=== PATIENT | male | born 1970 | race Caucasian/White ===

== ENCOUNTER 2025-02-17 09:11 | Observation (INO) ==
[2025-02-17] MEDS: ONDANSETRON INJ 2 MG/ML 2 ML VIAL IV STA (09:52)
[2025-02-17] MEDS: SODIUM CHLORIDE 0.9% 1,000 ML IV STA (09:52)
[2025-02-17 10:09] LABS: Hematocrit (blood only) 52.0 % (42.0-52.0); Hemoglobin 17.7 g/dl (14.0-18.0); Immature Granulocytes # (auto) 0.05 K/uL (0.01-0.20); Immature Granulocytes % (auto) 0.5 %; Mean Corpuscular Hemoglobin 29.9 pg (25.0-34.0); Mean Corpuscular Volume 88.0 fL (80.0-100.0); Platelet Count 307 K/uL (130-400); RDW Standard Deviation 40.5 fL (36.4-46.3); Red Blood Count 5.91 M/uL (4.70-6.10); White Blood Count 9.96 K/ul (4.8-10.8)
[2025-02-17 10:20] LABS: Appearance Urine Clear (Clear); Bacteria Urine Automated None Seen (None Seen); Cast Urine Automated 0-2 /lpf (0-2); Epithelial Cell Urine Auto 0-2 /hpf (0-2); Glucose Urine UA Negative (Negative); RBC Urine Automated 0-2 /hpf (0-2); WBC Urine Automated 0-5 /hpf (0-5)
[2025-02-17] MEDS: PANTOprazole 40 MG/10 ML SYR IV ONE (10:25)
[2025-02-17 10:27] LABS: Alanine Aminotransferase 15.0 U/L (7-52); Albumin Globulin Ratio 1.4 (0.9-2); Alkaline Phosphatase 91.0 U/L (34-104); Anion Gap 11.0 (3-11); Bilirubin,Total 0.7 mg/dl (0.2-1.0); Blood Urea Nitrogen 14.0 mg/dl (6-23); Calcium 9.7 mg/dl (8.6-10.3); Carbon Dioxide 24.0 mmol/L (21-32); Chloride 98.0 mmol/L (98-107); Creatinine Clr Calc Pharmacy 83.8 ml/min; Globulin 3.4 gm/dl (2.5-4.0); Glucose 91.0 mg/dl (70-99(Fasting)); Lipase 19.0 U/L (11-82); Potassium 3.4 mmol/L (3.5-5.1); Sodium 133.0 mmol/L (136-145); Total Protein 8.1 gm/dl (6.0-8.3)
--- NOTE | 2025-02-17 11:16 | Emergency Department Note ---
Impression & Plan Intractable vomiting ED Provider Note CHIEF COMPLAINT: Intractable vomiting HISTORY OF PRESENTING ILLNESS: Patient is a 54-year-old male who presents to the emergency department today for complaints of intractable vomiting. He was seen and evaluated here in the emergency department yesterday and was discharged home. However throughout the night he had vomited multiple times as well as when he woke up this morning. He was sent home with a prescription for Zofran which has been ineffective. The patient states he is unable to eat or drink anything without vomiting immediately after. He does deny abdominal pain but says his muscles are tight from the frequent vomiting. He denies diarrhea. He does deny NSAID or frequent alcohol use. He does report drinking coffee on an empty stomach every morning and throughout the afternoon. He does have a history of stomach ulcers from several years ago. Typically when he has symptoms he will take some Pepcid and they will resolve however he has been unable to swallow the Pepcid and keep it down. He does deny any head trauma, falls, loss of consciousness, dizziness, lightheadedness, syncope. He denies chest pain, sob, breathing difficulties, abdominal pain, headache, fevers/chills, blood in stool or urine, any recent illness, or any recent travel. REVIEW OF SYSTEMS: See HPI for pertinent positives and pertinent negatives. ALLERGIES: See below MEDICATIONS: See below PAST MEDICAL HISTORY: See below PHYSICAL EXAM: VITAL SIGNS - Vital signs and nursing notes were reviewed. GENERAL -54-year-old male appearing his stated age who is in no acute distress. Communicates well with provider and answers questions appropriately. HEAD - NC/AT. EYES - PERRL with EOMI bilaterally. Sclera anicteric. Palpebral conjunctiva pink and moist with no injection noted. NOSE - Midline and without cyanosis. No epistaxis or purulent drainage noted. Septum midline without deviation or septal hematoma noted. MOUTH/OROPHARYNX - Without perioral cyanosis. Buccal mucosa pink and moist and without leukoplakia. Tongue midline with equal elevation of palate bilaterally. No tonsillar hypertrophy, erythema, or exudates noted. NECK - Neck with FROM. Supple to palpation. No nuchal rigidity. LUNGS - Chest wall symmetric without accessory muscle use, intercostals retractions, or central cyanosis. Normal vesicular breath sounds CTA B/L. No wheezes, rales, or rhonchi appreciated. CARDIAC - RRR with S1/S2. No murmur, rubs, or gallops appreciated. ABDOMEN - Abdominal contour is without pulsations or visible masses. Negative Roxie's or Whitaker Yarbrough's Signs. BS normoactive all four quadrants. No tenderness to palpation appreciated all 4 quadrants. No guarding. No rebound Tenderness. Negative Vovsing's. Negative Rich's. No palpable masses, hepatosplenomegaly, or ascites noted. PSYCH - A&Ox3 and cooperates fully with examiner. Pt is very pleasant and interacts well with examiner. DIFFERENTIAL DIAGNOSIS: Differential diagnosis includes appendicitis, diverticulitis, bowel obstruction, inflammatory bowel disease, renal colic, PUD, biliary pathology, pancreatitis, mesenteric ischemia, aortic pathology, infection, genitourinary, UTI, perforated viscus, among others. ED COURSE AND MEDICAL DECISION MAKING: HISTORY FROM INDEPENDENT HISTORIAN: History was provided by the patient and his who is at bedside. MONITOR: Continuous surveillance system monitor: Order was placed for continuous surveillance system monitor. Patient was placed on the surveillance system monitor and continuous pulse ox. Patient was noted to be in normal sinus rhythm at an initial rate of 81 bpm per my interpretation. INTERPRETATION OF LABS: I interpreted the labs with full lab results as below in the lab section of this note. Laboratory results pertinent to the emergent complaint are discussed in the MDM section below. The patient was advised to follow up with their PCP and/or specialist(s) for further outpatient monitoring and management of any abnormal results. CHRONIC MEDICAL/SOCIAL CONDITIONS AFFECTING CARE: No social concerns were identified as barriers to patients care. EXTERNAL RECORDS REVIEWED: Patient's previous visit to the emergency department on 02/16/2025. ESCALATION OF CARE CONSIDERED: I considered admission on this patient due to the intractable vomiting and failure with outpatient management. SUMMARY: I examined the patient for complaints of intractable vomiting. A physical exam and history were performed. Nursing notes, EMR, and medication list were personally reviewed. CBC showed no leukocytosis, anemia, thrombocytopenia. CMP showed no emergent findings a sodium of 133, potassium of 3.4. Urinalysis showed a trace amount of leukocytes with negative nitrates and no bacteria. The patient does deny any urinary symptoms. The patient was given 1 L of normal saline here in the emergency department as well as Zofran 4 mg with improvement in nausea and vomiting. On review of the patient's visit yesterday he did have a CT of the abdomen and pelvis completed which showed no acute infectious or inflammatory findings. I did discuss discharge versus admission with the patient and the patient is in agreements for hospital admission for further management. I did consult with Dr. Julio Lancaster who agrees with admission and accepts the patient. DIAGNOSIS: Intractable vomiting TREATMENT PLAN/DISCHARGE INSTRUCTIONS: Admit to hospitalist services. Past Med/Surg History Problem List (Updated 02/17/25 @ 13:25 by Cam Lancaster MD) Tobacco use PUD (peptic ulcer disease) Intractable vomiting (Acute) Vomiting (Acute) Abdominal pain (Acute) Medical History Hypertension Social History Smoking Status: Current every day smoker Tobacco Type: Cigarettes Cigarettes Per Day: 1 pack a day; Second Hand Exposure: No; Do You Dip or Chew Tobacco: No; Tobacco Cessation Education Requested by Patient: No Hx Alcohol Use: Yes Hx Substance Use: No Preferred Language: Croatian Communication Ability: Effective Power Press Tender Required: No Beliefs That Will Affect Care: None Current Living Situation: Spouse Other Information That Helps Us Care for You: No Feels Safe at Home: Yes Safety Concerns: Feels Safe At This Time Assistive Devices: None Allergies Allergies Allergy/AdvReac Type Severity Reaction Status Date / Time No Known Allergies Allergy Unverified 02/17/25 09:17 Home Meds Home Medications Medication Instructions Recorded Confirmed amlodipine 5 mg tablet 10 mg PO BID 02/17/25 02/17/25 buspirone 5 mg tablet 5 mg PO BID 02/17/25 02/17/25 enalapril maleate 10 mg tablet 10 mg PO DAILY 02/17/25 02/17/25 sertraline 50 mg tablet 50 mg PO DAILY 02/17/25 02/17/25 Previous Rx's Medication Instructions Recorded ondansetron HCl 4 mg tablet 4 mg PO Q8H PRN nausea and 02/16/25 vomiting #15 tabs Results & Data (ED) Vital Signs Vital Signs - 24 hr 02/17/25 09:15 02/17/25 10:00 02/17/25 10:00 Temperature 36.4 C L Temperature Source Oral Pulse Rate 76 Pulse Rate from SpO2 Sensor Respiratory Rate 20 Respiratory Effort / Characteristics Non-Labored Spontaneous Respiratory Depth Normal Respiratory Pattern Regular Blood Pressure 196/101 H 196/111 H 196/111 H Blood Pressure Mean 132 154 154 Pulse Oximetry 100 Oxygen Delivery Method Room Air Sepsis Recent Fever Within 48 Hours No Sepsis New/Unexplained Change in Mental Status N/A Sepsis Action Taken by Nursing No Action Required 02/17/25 10:00 02/17/25 10:00 02/17/25 10:01 Temperature Temperature Source Pulse Rate 66 Pulse Rate from SpO2 Sensor Respiratory Rate Respiratory Effort / Characteristics Respiratory Depth Respiratory Pattern Blood Pressure 196/111 H 196/111 H Blood Pressure Mean 154 154 Pulse Oximetry Oxygen Delivery Method Sepsis Recent Fever Within 48 Hours Sepsis New/Unexplained Change in Mental Status Sepsis Action Taken by Nursing 02/17/25 10:03 02/17/25 10:30 02/17/25 10:30 Temperature Temperature Source Pulse Rate 70 81 Pulse Rate from SpO2 Sensor 68 83 Respiratory Rate 11 L 16 Respiratory Effort / Characteristics Respiratory Depth Respiratory Pattern Blood Pressure 191/101 H Blood Pressure Mean 143 Pulse Oximetry 96 98 Oxygen Delivery Method Sepsis Recent Fever Within 48 Hours Sepsis New/Unexplained Change in Mental Status Sepsis Action Taken by Nursing Laboratory Data 02/17/25 09:54 02/17/25 09:54 Lab Results 02/17/25 02/17/25 02/17/25 Range/Units 09:54 09:54 09:54 WBC 9.96 (4.8-10.8) K/ul RBC 5.91 (4.70-6.10) M/uL Hgb 17.7 (14.0-18.0) g/dl Hct 52.0 (42.0-52.0) % MCV 88.0 (80.0-100.0) fL MCH 29.9 (25.0-34.0) pg MCHC 34.0 (32.0-36.0) g/dL RDW Std Deviation 40.5 (36.4-46.3) fL RDW Coeff of Lexy 12.5 (11.5-14.5) % Plt Count 307 (130-400) K/uL MPV 8.6 L (9.4-12.4) fL Immature Gran % (Auto) 0.5 % Neut % (Auto) 65.1 % Lymph % (Auto) 24.0 % [place] % (Auto) 7.6 % Eos % (Auto) 2.2 % Baso % (Auto) 0.6 % Neut # (Auto) 6.48 (1.40-6.50) K/uL Lymph # (Auto) 2.39 (1.20-3.40) K/uL [place] # (Auto) 0.76 H (0.11-0.59) K/uL Eos # (Auto) 0.22 (0.00-0.50) K/uL Baso # (Auto) 0.06 (0.00-0.20) K/uL Immature Gran # (Auto) 0.05 (0.01-0.20) K/uL Sodium 133 L (136-145) mmol/L Potassium 3.4 L (3.5-5.1) mmol/L Chloride 98 (98-107) mmol/L Carbon Dioxide 24 (21-32) mmol/L Anion Gap 11 (3-11) BUN 14 (6-23) mg/dl Creatinine 1.08 (0.6-1.4) mg/dl Est Cr Clr Drug Dosing 83.8 ml/min eGFR 81.04 BUN/Creatinine Ratio 13.0 (10-20) Glucose 91 (70-99(Fasting)) mg/dl Calcium 9.7 (8.6-10.3) mg/dl Total Bilirubin 0.7 (0.2-1.0) mg/dl AST 13 (13-39) U/L ALT 15 (7-52) U/L Alkaline Phosphatase 91 (34-104) U/L Troponin I High Sens 5.2 Cancelled (0-20) pg/ml Total Protein 8.1 (6.0-8.3) gm/dl Albumin 4.7 (3.4-5.0) gm/dl Globulin 3.4 (2.5-4.0) gm/dl Albumin/Globulin Ratio 1.4 (0.9-2) Lipase 19 (11-82) U/L TSH 3.253 Cancelled (0.300-4.500) uIu/ml Urine Color Yellow Urine Appearance Clear (Clear) Urine pH 6.5 (4.5-7.5) Ur Specific [place] 1.021 (1.000-1.030) Urine Protein Negative (Negative) Urine Glucose (UA) Negative (Negative) Urine Ketones 2+ H (Negative) Urine Blood Negative (Negative) Urine Nitrite Negative (Negative) Urine Bilirubin Negative (Negative) Urine Urobilinogen Negative (Negative) Ur Leukocyte Esterase Trace H (Negative) Urine WBC (Auto) 0-5 (0-5) /hpf Urine RBC (Auto) 0-2 (0-2) /hpf U Hyaline Cast (Auto) 0-2 (0-2) /lpf U Epithel Cells (Auto) 0-2 (0-2) /hpf Urine Bacteria (Auto) None Seen (None Seen) Urine Comment Urine Opiates Screen Pos H (Neg) Ur Methadone, Qual Neg (Neg) Urine Fentanyl Screen Neg (Neg) Urine Barbiturates Neg (Neg) Ur Phencyclidine (PCP) Neg (Neg) U Amphetamin/Meth Scrn Neg (Neg) MDMA (Ecstasy) Screen Neg (Neg) U Benzodiazepines Scrn Neg (Neg) Ur Cocaine Metabolite Neg (Neg) U Marijuana (THC) Screen Neg (Neg) Administered Medications Amlodipine Besylate (Amlodipine Besylate 5 Mg Tab) 10 mg PO DAILY LETITIA Stop: 03/19/25 14:59 Last Admin: 02/17/25 15:44 Dose: 10 mg Documented By: UMA Heparin Sodium (Porcine) (Heparin Sod 5,000 Unit/0.5 Ml Vial) 5,000 units SQ Q8 LETITIA Stop: 03/19/25 14:59 Last Admin: 02/17/25 15:44 Dose: 5,000 units Documented By: UMA Lactated Ringer's (Lr) 1,000 mls @ 125 mls/hr IV .Q8H LETITIA Stop: 02/18/25 00:00 Last Admin: 02/17/25 11:47 Dose: 125 mls/hr Documented By: TERRA Lisinopril (Lisinopril 10 Mg Tab) 10 mg PO QAM LETITIA Stop: 03/19/25 14:59 Last Admin: 02/17/25 15:44 Dose: 10 mg Documented By: UMA Metoclopramide HCl (Metoclopramide Hcl 5 Mg Tablet) 5 mg PO Q8 LETITIA Stop: 03/19/25 13:59 Last Admin: 02/17/25 14:12 Dose: 5 mg Documented By: TERRA Sertraline HCl (Sertraline Hcl 50 Mg Tablet) 50 mg PO DAILY LETITIA Stop: 03/19/25 14:59 Last Admin: 02/17/25 15:44 Dose: 50 mg Documented By: EATON Discontinued Medications Sodium Chloride (Nss) 1,000 mls @ 999 mls/hr IV .Q1H1M STA Stop: 02/17/25 10:42 Last Infusion: 02/17/25 10:53 Dose: Infused Documented By: Admin: 02/17/25 09:52 Dose: 999 mls/hr Documented By: KARLO Pantoprazole Sodium (Protonix) 40 mg in 10 mls @ 5 mls/min IV NOW ONE Stop: 02/17/25 10:09 Last Admin: 02/17/25 10:25 Dose: 5 mls/min Documented By: KARLO Ondansetron HCl (Ondansetron Inj 2 Mg/Ml 2 Ml Vial) 4 mg IV NOW STA Stop: 02/17/25 09:43 Last Admin: 02/17/25 09:52 Dose: 4 mg Documented By: KARLO Potassium Chloride (Potassium Chloride 20 Meq/15 Ml Udc) 40 meq PO NOW STA Stop: 02/17/25 11:37 Last Admin: 02/17/25 11:47 Dose: 40 meq Documented By: TDM Discharge Plan Visit Data Chief Complaint: Vomiting Stated Complaint: THROWING UP, NO BETTER ED Provider: Brenton Stafford ED Midlevel Provider: Jackeline Richmond Discharge Problem: Intractable vomiting Patient Disposition: Admitted As Inpatient Condition: Good Discharge Instructions Interventions: ED Discharge Assessment Last Done: 02/17/25 14:15
[2025-02-17] MEDS: LACTATED RINGER'S 1,000 ML IV SCH (11:47)
[2025-02-17] MEDS: POTASSIUM CHLORIDE 20 MEQ/15 ML UDC PO STA (11:47)
[2025-02-17 12:41] LABS: Thyroid Stimulating Hormone 3.253 uIu/ml (0.300-4.500)
[2025-02-17 13:08] LABS: Chlamydia pneumoniae PCR Not Detected (NotDetected); Coronavirus 229E PCR Not Detected (NotDetected); Coronavirus CoV-2 (COVID19)PCR Not Detected (NotDetected); Coronavirus HKU1 PCR Not Detected (NotDetected); Coronavirus NL63 PCR Not Detected (NotDetected); Coronavirus OC43PCR Not Detected (NotDetected); Human Metapneumovirus PCR Not Detected (NotDetected); Parainfluenza Virus 1 PCR Not Detected (NotDetected); Parainfluenza Virus 2 PCR Not Detected (NotDetected); Parainfluenza Virus 3 PCR Not Detected (NotDetected); Parainfluenza Virus 4 PCR Not Detected (NotDetected); Respiratory Syncytial VirusPCR Not Detected (NotDetected); Rhinovirus/Enterovirus PCR Not Detected (NotDetected)
--- NOTE | 2025-02-17 13:18 | History & Physical Report ---
Date of Service February 17, 2025 Assessment & Plan (1) Intractable vomiting: (2) Abdominal pain: (3) PUD (peptic ulcer disease): (4) Hypertension: (5) Tobacco use: Plan 54 yo male with pmhx of PUD, anxiety/depression, HTN who presents for intractable nausea/vomiting of unknown etiology. #Intractable Nausea/Vomiting #Orthostatic Hypotension -unclear etiology, symptoms since -hx of PUD but does not feel like prior symptoms to patient -imaging yesterday unremarkable -no NSAID use, does drink coffee on empty stomach all day -dizziness occurs from sitting to standing -differential is broad, including viral illness/gastritis/PUD (given symptoms), gastroparesis (possible but less likely given symptoms for first time), metabolic (possible), pancreatitis (unlikely given WNL lipase), infection (imaging unremarkable, normal labs), drug use (patient denies), less likely autoimmune, stroke (no localizing symptoms, dizziness appears orthostatic), idiopathic Plan: -start gentle hydration with LR -start scheduled reglan 5mg tid, zofran prn for nausea/vomiting -clear liquid diet today, progress as tolerated -check TSH, biofire, trop/BNP for metabolic workup -40mg PO bid protonix ordered -GI consult if symptoms not improved by tomorrow #HTN -stop enalapril, start lisinopril (longer acting) -decrease amlodpine to 10 mg daily instead of bid #Depression/Anxiety -continue buspar, sertraline #Hypokalemia #Mild Hyponatremia -trend BMP -replenished I spent a total of 70 minutes in direct patient care, including [id number] time with the patient and/or family, reviewing medical records, ordering and reviewing diagnostic tests, and coordinating care with other healthcare providers. This time includes: history taking, physical examination, medical decision making, counseling, ECG interpretation, imaging interpretation, lab interpretation, orders, and education, excluding time spent in the performance of separately billed services. History of Present Illness Chief Complaint: -intractable nausea/vomiting Primary Care Provider: Kristan Garzon 54 yo male with pmhx of PUD, anxiety/depression, HTN who presents for intractable nausea/vomiting. Had recent ED visit for similar concern, went home and failed outpatient therapy. No admissions in this system or [facility] system. In the ED, given protonix and fluids, admitted to medicine for further workup. Patient seen and examined at bedside. Patient states he has not been able to eat solid food since . He states he can occasionally keep fluid down. States it is only associated with trace epigastric pain. No sick contacts, has never happened to him before. Has been getting dizzy as well, worse with going from sitting to standing. Vomiting occurs 10mins to 2 hours after eating. Has hx of PUD, but this does not feel like that to him. Tobacco use, no alcohol use per patient, no drug use, full code. Allergies Allergy/AdvReac Type Severity Reaction Status Date / Time No Known Allergies Allergy Unverified 02/17/25 09:17 Home Medications Medication Instructions Recorded Confirmed Type ondansetron HCl 4 mg tablet 4 mg PO Q8H PRN nausea and 02/16/25 02/17/25 Rx vomiting #15 tabs amlodipine 5 mg tablet 10 mg PO BID 02/17/25 02/17/25 History buspirone 5 mg tablet 5 mg PO BID 02/17/25 02/17/25 History enalapril maleate 10 mg tablet 10 mg PO DAILY 02/17/25 02/17/25 History sertraline 50 mg tablet 50 mg PO DAILY 02/17/25 02/17/25 History Past Med/Surg History Problem List (Updated 02/17/25 @ 13:25 by Cam Lancaster MD) Tobacco use PUD (peptic ulcer disease) Intractable vomiting (Acute) Vomiting (Acute) Abdominal pain (Acute) Medical History Hypertension Social History Smoking Status: Current every day smoker Tobacco Type: Cigarettes Feels Safe at Home: Yes Review of Systems Review of Systems: -negative unless listed above Physical Exam Physical Exam: Gen: A&O 3 NAD HEENT: NCAT, EOMI, not icteric. External ears normal. No rhinorrhea. Dry mucous membranes. Neck: Supple, full range of motion, no observable masses, No meningeal sign. Lungs: No Respiratory distress. CV: RRR, no edema. Abdomen: Soft, nondistended, No rebound tenderness. MSK: No joint swelling, no redness. Skin: No rashes, petechiae, lesions. Normal color per patient. Neuro: Normal Gait, Grossly intact. Psych: Appropriate for situation. Results & Data Results & Data Vital Signs (Past 12 Hours) Vital Signs Temp Pulse Resp BP Pulse Ox O2 Del Method 02/17/25 11:30 18 162/91 H 98 02/17/25 10:30 191/101 H 02/17/25 10:30 81 16 98 02/17/25 10:03 70 11 L 96 02/17/25 10:01 66 02/17/25 10:00 196/111 H 02/17/25 10:00 196/111 H 02/17/25 10:00 196/111 H 02/17/25 10:00 196/111 H 02/17/25 09:15 36.4 C L 76 20 196/101 H 100 Room Air Laboratory Results -personally reviewed, mild hyponatremia and K noted likely consistent with nausea and vomiting, unclear creatinine baseline Medications Administered Lactated Ringer's (Lr) 1,000 mls @ 125 mls/hr IV .Q8H LETITIA Stop: 02/18/25 00:00 Last Admin: 02/17/25 11:47 Dose: 125 mls/hr Documented By: TDM Code Status & VTE Plan Code Status -full code VTE Prophylaxis Plan VTE Prophylaxis will be ordered: Yes
[2025-02-17] MEDS: METOCLOPRAMIDE HCL 5 MG TABLET PO SCH (14:12)
[2025-02-17 14:16] LABS: Amphetamines+Metham, Urine Neg (Neg); MDMA (Ecstacy), Urine Neg (Neg); Marijuana, Urine Neg (Neg)
[2025-02-17] MEDS ORDERED: ACETAMINOPHEN 325 MG TAB PO PRN (14:43)
[2025-02-17] MEDS ORDERED: POLYETHYLENE (MIRALAX) 17 GM PACK PO PRN (14:43)
[2025-02-17] MEDS ORDERED: ONDANSETRON INJ 2 MG/ML 2 ML VIAL IV PRN (14:43)
[2025-02-17] MEDS: SERTRALINE HCL 50 MG TABLET PO SCH (15:44)
[2025-02-17] MEDS: HEPARIN SOD 5,000 UNIT/0.5 ML VIAL SQ SCH (15:44)
[2025-02-17] MEDS: busPIRone 5 MG TAB PO SCH (20:47)
[2025-02-18 07:27] VITALS: BP 152/87; PULSE 69; RESP 15; TEMP 97.5; O2SAT 98
[2025-02-18 09:07] LABS: Hematocrit (blood only) 46.2 % (42.0-52.0); Hemoglobin 15.5 g/dl (14.0-18.0); Mean Corpuscular Hemoglobin 29.5 pg (25.0-34.0); Mean Corpuscular Volume 88.0 fL (80.0-100.0); Platelet Count 279 K/uL (130-400); RDW Standard Deviation 41.1 fL (36.4-46.3); Red Blood Count 5.25 M/uL (4.70-6.10); White Blood Count 8.98 K/ul (4.8-10.8)
[2025-02-18 09:28] LABS: Alanine Aminotransferase 11.0 U/L (7-52); Albumin Globulin Ratio 1.3 (0.9-2); Alkaline Phosphatase 73.0 U/L (34-104); Anion Gap 7.0 (3-11); Bilirubin,Total 0.5 mg/dl (0.2-1.0); Blood Urea Nitrogen 12.0 mg/dl (6-23); Calcium 9.1 mg/dl (8.6-10.3); Carbon Dioxide 26.0 mmol/L (21-32); Chloride 101.0 mmol/L (98-107); Creatinine Clr Calc Pharmacy 86.1 ml/min; Globulin 2.9 gm/dl (2.5-4.0); Glucose 154.0 mg/dl (70-99(Fasting)); Magnesium 2.0 mg/dl (1.7-2.4); Potassium 3.7 mmol/L (3.5-5.1); Sodium 134.0 mmol/L (136-145); Total Protein 6.8 gm/dl (6.0-8.3)
--- NOTE | 2025-02-18 12:38 | Discharge Summary ---
Date of Service February 18, 2025 Admission HPI Per Admitting Provider 54 yo male with pmhx of PUD, anxiety/depression, HTN who presents for intractable nausea/vomiting. Had recent ED visit for similar concern, went home and failed outpatient therapy. No admissions in this system or [facility] system. In the ED, given protonix and fluids, admitted to medicine for further workup. Patient seen and examined at bedside. Patient states he has not been able to eat solid food since . He states he can occasionally keep fluid down. States it is only associated with trace epigastric pain. No sick contacts, has never happened to him before. Has been getting dizzy as well, worse with going from sitting to standing. Vomiting occurs 10mins to 2 hours after eating. Has hx of PUD, but this does not feel like that to him. Tobacco use, no alcohol use per patient, no drug use, full code. Admission Exam Per Admitting Provider Gen: A&O 3 NAD HEENT: NCAT, EOMI, not icteric. External ears normal. No rhinorrhea. Dry mucous membranes. Neck: Supple, full range of motion, no observable masses, No meningeal sign. Lungs: No Respiratory distress. CV: RRR, no edema. Abdomen: Soft, nondistended, No rebound tenderness. MSK: No joint swelling, no redness. Skin: No rashes, petechiae, lesions. Normal color per patient. Neuro: Normal Gait, Grossly intact. Psych: Appropriate for situation. Principal Diagnosis Acute gastroenteritis Discharge Exam Gen: A&O 3 NAD HEENT: NCAT, EOMI, not icteric. External ears normal. No rhinorrhea. Dry mucous membranes. Neck: Supple, full range of motion, no observable masses, No meningeal sign. Lungs: No Respiratory distress. CV: RRR, no edema. Abdomen: Soft, nondistended, No rebound tenderness. MSK: No joint swelling, no redness. Skin: No rashes, petechiae, lesions. Normal color per patient. Neuro: Normal Gait, Grossly intact. Psych: Appropriate for situation. Discharge Data Allergies Allergy/AdvReac Type Severity Reaction Status Date / Time No Known Allergies Allergy Unverified 02/17/25 09:17 Consultations 02/17/25 10:49 ED Decision to Admit Stat Hospital Course (1) Intractable vomiting: (2) Abdominal pain: (3) PUD (peptic ulcer disease): (4) Hypertension: (5) Tobacco use: Plan 54 yo male with pmhx of PUD, anxiety/depression, HTN who presents for intractable nausea/vomiting . #Intractable Nausea/Vomiting Likely acute gastroenteritis Patient presented to the hospital with nausea and vomiting for last [address] abdomen and pelvis on 02/16 did not show acute finding No leukocytosis present His electrolytes are within normal limits. Patient was admitted to medical floor; was started on scheduled Reglan, IV fluid, clear liquid diet with improvement on his symptoms. At the time of the discharge, he reported improvement on his symptoms and was tolerating regular diet. Patient discharged on Reglan and Protonix. Please note the above document was generated using voice recognition software. It may contain grammatical, syntax or spelling errors. Any formal questions or concerns about the content, text or information contained within the body of this dictation should be directly addressed to the provider for clarification Total Time Total Time Spent Total Time Spent (In Minutes): 45 Total Time Includes: Examination of the Patient, Discharge Planning, Medication Reconciliation, Communication With Other Providers and Other Discharge Plan Discharge Items Patient Disposition: Home - Self-Care Reason For Visit: NAUSEA/VOMITING Discharge Diagnosis: Acute gastroenteritis Condition on Discharge: Good Activity: Resume your previous activity Non-emergency contact: Primary Care Provider Call non-emergency contact if: you have any medication questions and your symptoms worsen Follow-up/Referrals: Kristan Garzon [Primary Care Provider] - Diet: Regular Addtl Attending Provider Instructions: You were admitted to the hospital with acute gastroenteritis. You are treated with IV fluids during the hospitalization. Stool studies did not show any infection. Please continue hydration. Drink Pedialyte if you experience more n ausea/vomiting. You are prescribed Reglan to be taken as needed up to 3 times a day. You are also prescribed Protonix to be taken twice a day for next 2 weeks. Pending Studies at Discharge: No Stand-Alone Forms: [employer], Work/School Release, Smoking Cessation Medications and DC Order Prescriptions: New metoclopramide HCl 5 mg Tablet 5 mg PO Q8 PRN (Reason: nasuea/vomiting) Qty: 10 0RF pantoprazole 40 mg Tablet,Delayed Release (Dr/Ec) 40 mg PO BID 14 Days Qty: 28 0RF Continued buspirone 5 mg tablet 5 mg PO BID enalapril maleate 10 mg tablet 10 mg PO DAILY amlodipine 5 mg tablet 10 mg PO BID sertraline 50 mg tablet 50 mg PO DAILY Discontinued ondansetron HCl 4 mg tablet 4 mg PO Q8H PRN (Reason: nausea and vomiting) Qty: 15 0RF Discharge Orders: Discharge Order (Routine); Ordered 02/18/25 Ordered By: Ky Mcadams Admission Data Admit Date/Time: 02/17/25 10:52 Attending Provider: Ky Mcadams Admit Provider: Cam Lancaster Primary Care Provider: Kristan Garzon Other Providers: Cam Lancaster
[2025-02-20 16:22] LABS: Hydrocodone Urine NEGATIVE ng/mL (<50); Hydromor Urine NEGATIVE ng/mL (<50); Noroxycodone Urine NEGATIVE ng/mL (<50); Oxymorph Urine NEGATIVE ng/mL (<50)
== END 2025-02-18 13:54 | disposition home or self-care (01) ==
LOC: 3W 09:11 → ED 09:11 → SUATTDRO 10:52 → 3W 14:15